=== PATIENT | female | born 1965 | race Caucasian/White ===

== ENCOUNTER → 2017-10-11 | Outpatient (CLI) | payer OTHER ==
--- NOTE | 2017-10-11 11:33 | Diagnostic Imaging Report ---
INDICATION: Lump in the right groin. Sonographic interrogation of the right groin demonstrates a lymph node measuring 3.7 x 0.9 x 1.6 cm. This does show some fatty hilum. No other masses are seen. IMPRESSION: Enlarged right groin lymph node, indeterminate. Dictated by: Dictated on workstation # [id number]
== END ==
LOC: RAD 10:44
PROVIDERS: ATTEND Nurse Practitioner Family
DX: R59.0 Localized enlarged lymph nodes (principal)
CPT/HCPCS: 76881

== ENCOUNTER 2017-12-20 16:41 | Day surgery (SDC) | payer OTHER ==
[~2017-12-20] VITALS: Ht 172.7 cm; Wt 53.5 kg
[2017-12-20] VITALS (8 sets, daily range): BP systolic 122–146; BP diastolic 69–91
[2017-12-20] MEDS ORDERED: LIDOCAINE/EPI 1%-1:200,000 (XYLOCAINE) 10 ML VIAL ONE (17:21)
[2017-12-20] MEDS ORDERED: fentaNYL INJECTION 100 MCG/2 ML AMP ONE (17:28)
[2017-12-20] MEDS ORDERED: SEVOFLURANE (ULTANE) 15 ML INHAL SOLN ONE ×5 (17:28→19:02)
[2017-12-20] MEDS ORDERED: ONDANSETRON 4 MG/2 ML (SDV) Z0FRAN ONE (17:28)
[2017-12-20] MEDS ORDERED: LIDOCAINE PF 2% 5 ML (XYLOCAINE) VIAL ONE (17:28)
[2017-12-20] MEDS ORDERED: DEXAMETHASONE 10 MG/ML (DECADRON) 1 ML VIAL ONE (17:28)
[2017-12-20] MEDS ORDERED: proPOfol 200 MG/20 ML (DIPRIVAN) VIAL IV ONE (17:28)
[2017-12-20] MEDS ORDERED: MIDAZOLAM 2 MG/2 ML (VERSED) VIAL ONE (17:28)
[2017-12-20] MEDS ORDERED: ROCURONIUM 10 MG/ML 5 ML SYRINGE IV ONE (17:30)
[2017-12-20] MEDS ORDERED: NS (IVPB) 50 ML ONE (17:34)
[2017-12-20] MEDS ORDERED: ceFAZolin 1,000 MG/10 ML (ANCEF) VIAL ONE (17:34)
[2017-12-20] MEDS ORDERED: ceFAZolin INJECTION 1,000 MG in NS (IVPB) 50 ML IV ONE (17:45)
[2017-12-20] MEDS ORDERED: LACTATED RINGERS 1,000 ML IV SCH (17:45)
[2017-12-20] MEDS ORDERED: ATROPINE INJ 0.4 MG/ML SDV ONE ×2 (18:18→19:02)
[2017-12-20] MEDS ORDERED: morphine INJ 10 MG/ML 1ML (SYR OR VIAL) ONE (18:45)
[2017-12-20] MEDS ORDERED: MEPERIDINE (DEMEROL) INJ 50 MG/ML ONE (18:46)
[2017-12-20] MEDS ORDERED: GLYCOPYRROLATE 0.2 MG/ML (ROBINUL) 2 ML VIAL ONE (18:47)
[2017-12-20] MEDS ORDERED: NEOSTIGMINE 1 MG/ML 5 ML SYRINGE ONE (18:47)
[2017-12-20] MEDS ORDERED: ACHD5005 PO (19:01)
--- NOTE | 2017-12-20 19:01 | Progress Note-Post Operative ---
Post-Operative Progess Note Surgeon (s)/Talent Analyst (s) Surgeon CHRISTOPHER FARFAN DO Talent Analyst: Joshua Pre-Operative Diagnosis IMPACTED GALLBLADDER Post-Operative Diagnosis Acute Cholecystitis with Cholelithiasis Procedure & Operative Findings Date of Procedure 12/20/17 Procedure Performed/Findings Lap cierra with IOC Anesthesia Type GET Estimated Blood Loss Estimated blood loss (mL): scant Specimens/Packing Specimens Removed GB and contents CHRISTOPHER FARFAN DO Dec 20, 2017 19:00
--- NOTE | 2017-12-20 19:02 | Diagnostic Imaging Report ---
INDICATION: Pain. FINDINGS: Intraoperative cholangiogram demonstrates normal caliber of the intrahepatic and extrahepatic biliary ducts. No intrinsic or extrinsic filling defects are appreciated. There is free spill of contrast into the duodenum. There is no pathological extravasation of contrast. IMPRESSION: Unremarkable intraoperative cholangiogram status post cholecystectomy. Please correlate with the formal operative report. Dictated by: Dictated on workstation # [id number]
--- NOTE | 2017-12-20 19:03 | Discharge Inst-Surgical ---
Discharge Inst-Surgical Depart Medication/Instructions New, Converted or Re-Newed RX: RX Given to Pt/Family Patient Instructions Follow up Appt: Make appointment for 1 week. Instructions: No lifting greater than 10 pounds. No strenuous activity. May shower in 24 hours, no tub bath or soaking. Use incentive spirometer at home as directed. No Smoking Skin/Wound Care: May remove bandages in am. You need to leave the Dermabond on over incision it will fall off on its own. Symptoms to Report: Appetite Changes, Extremity Discoloration, Numbness/Tingling, Swelling Increased , Bleeding Excessive, Eyesight Changes, Pain Increased, Urine Color Change, Constipation(Persistent), Fever over 101 degree F, Pain/Pressure in chest, Urinating Difficulty, Cough Up/Vomit Blood, Heart Beat Irreg/Pounding, Pain/ Pressure in jaw, Vaginal Bleeding Increase, Cramps in feet or legs, Lightheadedness, Pain/Pressure in shoulder, Diarrhea(Persistent), Memory Changes Suddenly, Questions/Concerns, Weight gain consecutive days, Dizziness/ Fainting, Nausea/Vomiting, Shortness of Breath, Weight gain over 2 pounds If questions or concerns contact your physician Or seek help at emergency department. Activity Activity as Tolerated: Yes Driving Instructions: No Driving/Refer to Diet Discharge Diet: Avoid Fatty Foods, Low Fat/Low Cholesterol Diet After 24 Hours: Clear Liquid if Nauseous If Any Problems/Questions/Issu: Contact Your Physician, Go to Emergency Room Skin/Wound Care Infection Signs and Symptoms: Increased Redness, Foul Odor of Wound, Increased Drainage, Skin Itchy or Has a Rash, Increased Swelling, Temperature Above 101 F Wound Care Comment: Heating pad to shoulder or neck for pain tonight Bathing Instructions: Shower Stitches/Yang/Dermabond Dis: Dermabond Ice Pack: Ice On and Off Site (as needed for pain) CHRISTOPHER FARFAN DO Dec 20, 2017 19:03
[2017-12-20] MEDS ORDERED: LACTATED RINGERS 1,000 ML IV PRN (19:08)
[2017-12-20] MEDS ORDERED: ONDANSETRON 4 MG/2 ML (SDV) Z0FRAN IVP PRN (19:15)
[2017-12-20] MEDS ORDERED: morphine INJ 10 MG/ML 1ML (SYR OR VIAL) IVP ONE (19:15)
[2017-12-20] MEDS ORDERED: MEPERIDINE (DEMEROL) INJ 50 MG/ML IVP ONE (19:15)
[2017-12-20] MEDS ORDERED: HYDROcodone/APAP 5 MG/325 MG (LORTAB) TAB PO ONE (21:45)
--- NOTE | 2017-12-20 21:58 | OPERATIVE REPORT ---
DATE OF SERVICE: 12/20/2017 PREOPERATIVE DIAGNOSES: Acute cholecystitis, cholelithiasis. POSTOPERATIVE DIAGNOSES: Acute cholecystitis, cholelithiasis. PROCEDURE: Laparoscopic cholecystectomy with intraoperative cholangiogram. SURGEON: Tommy Tabares DO PATIENT ACCOUNT SPECIALIST: Ken Lewis DO ANESTHESIA: General endotracheal tube. SPECIMEN: Gallbladder and contents. BLOOD LOSS: Scant. FLUIDS: Per anesthesia. POSTOPERATIVE CONDITION: Stable. INDICATION FOR PROCEDURE: The patient is a 52-year-old female who has been having pretty severe right upper quadrant pain for the past 3 weeks associated with fried and fatty foods and had a CAT scan, which showed acute cholecystitis. An ultrasound showed cholelithiasis and possible impaction of stones in the gallbladder neck. FINDINGS: The patient had a very enlarged gallbladder, multiple stones, it was edematous and there were adhesions to it, which were usually indicative of previous gallbladder attacks. PROCEDURE NOTE: After informed consent was obtained, the patient was brought to the operating room, placed on the table in supine position. She was sterilely prepped and draped in normal fashion. Local lidocaine was used to infiltrate the skin above the umbilicus. Made incision with #11 blade, carried down through the skin into subcutaneous tissue, then deepened down to the subcutaneous tissue with Bovie electrocautery down to the fascia. Fascia was then incised with Bovie electrocautery. Bluntly entered the abdomen, swept a finger around, placed 0 Vicryl [id number] suture, then placed 11 mm trocar port under direct visualization. Created pneumoperitoneum and then placed 3 more ports in normal fashion using local lidocaine, 11 blade for stab incision and VersaStep system all done under direct visualization, one in the subxiphoid and two in the right upper quadrant. The patient was then placed slightly in Trendelenburg. Upon entry, noted the gallbladder was very enlarged. There was some erythema around it, appeared to be distended. Able to grasp it at the fundus and taken in superior direction, then noted adhesions usually indicative of previous gallbladder attacks, started taking these down with blunt dissection as well as Bovie electrocautery. Finally, able to grasp down to Go's pouch large stones impacted down here, so it was very hard to grasp down here. We tried to grasp down here and pulled in inferolateral direction, started dissecting out cystic duct and cystic artery. I was able to get around the cystic duct and the cystic artery and placed 1 clip distally on the cystic duct and then one distally and two proximally on the cystic artery and then cut the cystic duct senior living through Metzenbaum scissors. Placed a cholangiogram catheter and shot a cholangiogram. Good spillage of dye down the common bile duct into the small intestine as well as up in the common hepatic and right and left hepatics. Then removed the cholangiogram catheter, placed 2 clips proximally. Cut the cystic duct with Metzenbaum scissors and then cut the cystic artery with Metzenbaum scissors. Removed the gallbladder from bed of liver with L-hook cautery, which was completely removed, placed a bag in the abdomen, placed the gallbladder in the bag and then removed this through a supraumbilical incision. Placed the port back in the abdomen, copiously irrigated with normal saline. Hemostasis obtained in the bed of liver with Bovie electrocautery. Once ensured there was no bleeding, flushed some more and then suctioned all this out. Placed the patient supine and at this point then removed all ports under direct visualization, allowed pneumoperitoneum to escape, closing the supraumbilical incision with 0 Vicryl lecvrk-fz-walby suture and then a simple 0 Vicryl suture. Copiously irrigated all incisions with normal saline and closed the 3 small 5 mm incisions with a single interrupted 4-0 undyed Monocryl subcuticular stitch. Closed the supraumbilical incision with 3 interrupted 4-0 undyed Monocryl subcuticular stitches. Area was cleaned and dried and Dermabond placed as well as Band-Aids. The patient was then transferred to recovery room in stable condition. Sponge, instrument and needle count correct at the end of the case. Dr. Lewis assisted on this case helping to make incisions, close incisions as well as hold the anatomy and identify anatomy. Job ID: [id number] DocumentID: [id number] Dictated Date: 12/20/2017 20:44:31 Aviation Safety Officer Date: 12/20/2017 21:20:05 Dictated By: TOMMY TABARES DO
--- NOTE | 2017-12-21 13:49 | Anesthesia-General Post-Op ---
General Patient Condition Mental Status/LOC: Same as Preop Cardiovascular: Satisfactory Nausea/Vomiting: Absent Respiratory: Satisfactory Pain: Controlled Complications: Absent Post Op Complications Complications None Follow Up Care/Instructions Patient Instructions None needed. Anesthesia/Patient Condition Patient Condition Patient was already discharged to home this morning. No anesthetic complications were reported by nursing staff. STACY SERRANO DO Dec 21, 2017 13:49
== END 2017-12-20 22:40 | disposition home or self-care (01) ==
LOC: SDC 16:41 → 4TH 20:51 → SDC 22:40
PROVIDERS: ATTEND Surgery
DX: K80.00 Calculus of gallbladder with acute cholecystitis without obstruction (principal)
CPT/HCPCS: 87081

== ENCOUNTER → 2017-12-27 | Outpatient (CLI) | payer OTHER ==
[~2017-12-27] MED LIST: ACHD5005 PO
[2017-12-27 15:46] LABS: BILIRUBIN,URINE NEGATIVE (NEGATIVE); CLARITY,URINE CLEAR; COLOR,URINE YELLOW; GLUCOSE, URINE (UA) NEGATIVE (NEGATIVE); KETONES,URINE NEGATIVE (NEGATIVE); LEUKOCYTE ESTERASE ,URINE NEGATIVE (NEGATIVE); NITRITE,URINE NEGATIVE (NEGATIVE); PH,URINE 7 (5-9); PROTEIN,URINE NEGATIVE (NEGATIVE); UROBILINOGEN,URINE NORMAL (NORMAL)
[2017-12-27 15:55] LABS: RBC,URINE 0-2 /HPF; SQUAMOUS EPITHELIAL CELL,UR 0-2 /HPF
== END ==
LOC: LAB 14:40
PROVIDERS: ATTEND Surgery
DX: R35.0 Frequency of micturition (principal)
CPT/HCPCS: 81000

== ENCOUNTER → 2020-10-11 | Outpatient (CLI) | payer OTHER ==
--- NOTE | 2020-10-11 13:51 | Diagnostic Imaging Report ---
Indication: Palpable lump right breast. Comparison is made with prior exam 04/10/2019. 2-D and 3-D bilateral diagnostic mammography was performed with CAD. Both breasts are heterogeneously dense, limiting sensitivity of mammography. BB marker is placed at the area of palpable abnormality in the upper outer right breast. There is some area of increased density in the upper and outer aspect of the right breast approximately 8-9 cm from the nipple. There is also an area of irregular increased density posterior right breast just above the nipple line on MLO view approximately 7 cm from the nipple. This is not well-seen on the CC view. These areas will be evaluated with ultrasound. No suspicious microcalcifications are seen. Left breast is unremarkable. IMPRESSION: BI-RADS 0 Right breast densities, as described. Further evaluation with ultrasound is recommended and will be performed today. ACR BI-RADS Category 0: Incomplete. (Needs additional imaging evaluation). Result letter will be mailed to the patient. Note: At least 10% of breast cancer is not imaged by mammography. Dictated by: Dictated on workstation # [id number]
--- NOTE | 2020-10-11 14:54 | Diagnostic Imaging Report ---
INDICATION: Palpable lump in the right breast and abnormal mammogram. COMPARISON: Correlation is made with the diagnostic mammogram from earlier this same day. FINDINGS: Sonographic interrogation of the area of palpable abnormality in the right breast corresponds to the 10 o'clock location. There is a solid mass at this location measuring 1.6 x 1.1 x 1.7 cm. There is some vascularity along the margin. There is some posterior acoustic enhancement. The possibility of a fibroadenoma cannot be excluded. Tissue sampling would be recommended. In addition, at approximately the 9 o'clock location of the right breast was evaluated due to a 2nd density noted mammographically. There is an area of hypoechogenicity at the 9 o'clock location measuring 4 mm x 5 mm x 6 mm. It is uncertain if this correlates with the mammographic density. No other sonographic abnormalities are seen. IMPRESSION: There are two masses in the right breast at the 9 and 10 o'clock locations. The 10 o'clock mass likely accounts for the mammographic density and palpable abnormality. The 9 o'clock lesion is indeterminate. Further evaluation with MRI of the breasts with and without IV contrast is recommended for better characterization prior to biopsy. ACR BI-RADS Category 0: Incomplete. (Needs additional imaging evaluation). Dictated by: Dictated on workstation # [id number]
== END ==
LOC: RAD 12:45
PROVIDERS: ATTEND Nurse Practitioner Family
DX: N63.11 Unspecified lump in the right breast, upper outer quadrant (principal); N63.21 Unspecified lump in the left breast, upper outer quadrant; F43.21 Adjustment disorder with depressed mood; J30.9 Allergic rhinitis, unspecified; D64.9 Anemia, unspecified; F41.8 Other specified anxiety disorders; K64.9 Unspecified hemorrhoids; D51.1 Vitamin B12 deficiency anemia due to selective vitamin B12 malabsorption with proteinuria; E55.9 Vitamin D deficiency, unspecified
CPT/HCPCS: 76642; 77066; G0279; 77062